=== PATIENT | female | born 1960 | race Caucasian/White ===

== ENCOUNTER 2017-09-14 09:59 | Emergency (ER) | payer SELFPAY | END 2017-09-14 12:18 | disposition home or self-care (01) | LOC: NAV ERS 09:59 | DX: S39.012A Strain of muscle, fascia and tendon of lower back, initial encounter (principal); K59.00 Constipation, unspecified; J45.909 Unspecified asthma, uncomplicated; Z79.51 Long term (current) use of inhaled steroids; W10.9XXA Fall (on) (from) unspecified stairs and steps, initial encounter | CPT/HCPCS: 99283 ==

== ENCOUNTER 2020-08-25 19:29 | Emergency (ER) | payer OTHER, SELFPAY ==
[2020-08-25] MEDS ORDERED: Acetaminophen 500 MG TAB ONE (19:44)
== END 2020-08-25 20:31 | disposition home or self-care (01) ==
LOC: NAV ERS 19:29
DX: S00.83XA Contusion of other part of head, initial encounter (principal); S00.12XA Contusion of left eyelid and periocular area, initial encounter; V87.8XXA Person injured in other specified noncollision transport accidents involving motor vehicle (traffic), initial encounter
CPT/HCPCS: 70486